=== PATIENT | male | born 1945 | race Caucasian/White ===

== ENCOUNTER → 2016-12-20 | Outpatient (CLI) | payer MEDICARE, OTHER | LOC: MW.CHUR 13:54 | PROVIDERS: ATTEND Urology | DX: R97.20 Elevated prostate specific antigen [PSA] (principal); R31.29 Other microscopic hematuria | CPT/HCPCS: 81001; G0463 ==

== ENCOUNTER 2017-12-23 14:54 | Emergency (ER) | payer MEDICARE, OTHER ==
--- NOTE | 2017-12-23 15:34 | EDM.PDOC ---
ED HPI GENERAL MEDICAL PROBLEM - General Chief Complaint: Head Injury Stated Complaint: NECK PAIN, HEADACHES, BLURRY VISION Time Seen by Provider: 12/23/17 15:21 Source of Information: Reports: Patient History Limitations: Reports: No Limitations - History of Present Illness INITIAL COMMENTS - FREE TEXT/NARRATIVE: HISTORY AND PHYSICAL: History of present illness: Patient is a 72-year-old male who presents to the emergency room today with complaints of head and neck pain. He states one week ago he was walking into the [place] and he slipped and fell on the ice landing on his back. He denies any loss of consciousness at that time. He states that for clinic and evaluated and got 4 mayra placed to the top of the scalp for a laceration. He did not have any scans or lab work done at that time. Today he presented to Dr. Ramos , the urologist, for a appointment and told him of his neck and head discomfort. They recommended that he come to our emergency room for a CT scan. Patient states that for the past couple weeks he has had some visual changes when he is reading small/fine print. He has not seen an cooler worker or had a visual exam and 2+ years. He does wear corrective lenses. He denies any chest pain, shortness of breath, abdominal pain, nausea, vomiting or diarrhea. Currently does not take any blood thinners or aspirin use. He has full range of motion of all extremities and declines any pain or concern with his upper or lower extremities. Review of systems: As per history of present illness and below otherwise all systems reviewed and negative. Past medical history: As per history of present illness and as reviewed below otherwise noncontributory. Surgical history: As per history of present illness and as reviewed below otherwise noncontributory. Social history: No reported history of drug or alcohol abuse. Family history: As per history of present illness and as reviewed below otherwise noncontributory. Physical exam: Gen.: Well-developed and well-nourished 72-year-old male. Alert and oriented. Nontoxic appearing and in no acute distress. HEENT: Atraumatic, normocephalic, pupils reactive, negative for conjunctival pallor or scleral icterus, mucous membranes moist, throat clear, neck supple, nontender, trachea midline. Lungs: Clear to auscultation, breath sounds equal bilaterally, chest nontender. Heart: S1S2, regular, negative for clicks, rubs, or JVD. Abdomen: Soft, nondistended, nontender. Negative for masses or hepatosplenomegaly. Negative for costovertebral tenderness. Pelvis: Stable nontender. Genitourinary: Deferred. Rectal: Deferred. C-Spine/Back: No pinpoint vertebral tenderness with palpation. No crepitus, step -offs or obvious deformities. He is fully ambulatory without any numbness or tingling to his lower extremities. He denies any urinary or fecal incontinence. Extremities: Atraumatic, negative for cords or calf pain. Neurovascular unremarkable. Skin: No bruising or open lesions noted. Does have 4 mayra to the top of the head. These appear free of erythema or signs of infection. Neuro: Awake, alert, oriented. Cranial nerves II through XII unremarkable. Cerebellum unremarkable. Motor and sensory unremarkable throughout. Exam nonfocal. CT head is normal. And the CT of the cervical spine shows some degenerative changes but no acute findings. This was explained to the patient. He voices understanding. We discussed supportive care measures at home. He will follow up with his primary care provider as needed. Diagnostics: CT head and C-spine Therapeutics: [] Impression: #1 Head injury #2 Muscular strain Plan: 1. Your head CT and neck CT are normal. The pain you're experiencing is likely muscular in nature. Flexeril (#8, NRF) has been prescribed for you for muscular spasms. This medication may cause drowsiness so do not take it while driving or needing to be functioning outside of the house. Please continue to take Tylenol and/or ibuprofen as needed for pain management. Gentle heat to the area. 2. Please follow up with her primary care provider ride or as needed. Return to the ED as needed and as discussed. Definitive disposition and diagnosis as appropriate pending reevaluation and review of above. Duration: Day(s): Location: Reports: Head, Neck head Pain Score (Numeric/FACES): 5 - Related Data Allergies Allergy/AdvReac Type Severity Reaction Status Date / Time No Known Allergies Allergy Verified 12/23/17 15:07 Past Medical History Cardiovascular History: Reports: High Cholesterol, Hypertension Genitourinary History: Reports: Other (See Below) Other Genitourinary History: enlarged prostate - Infectious Disease History Infectious Disease History: Reports: Chicken Pox, Shingles Social & Family History - Family History Family Medical History: Noncontributory - Tobacco Use Smoking Status *Q: Never Smoker - Recreational Drug Use Recreational Drug Use: No ED ROS GENERAL - Review of Systems Review Of Systems: ROS reveals no pertinent complaints other than HPI. ED EXAM, HEAD INJURY - Physical Exam Exam: See Below (See dictation) Course - Vital Signs Last Recorded V/S: Last Vital Signs Temp 98.3 F 12/23/17 15:08 Pulse 84 12/23/17 15:08 Resp 18 12/23/17 15:08 BP 131/98 H 12/23/17 15:08 Pulse Ox 93 L 12/23/17 15:08 Departure - Departure Time of Disposition: 16:37 Disposition: Home, Self-Care 01 Clinical Impression: Muscle strain Head injury Qualifiers: Encounter type: subsequent encounter Qualified Code(s): S09.90XD - Unspecified injury of head, subsequent encounter - Discharge Information Referrals: PCP,Unknown [Primary Care Provider] - Forms: ED Department Discharge Additional Instructions: My general discharge The following information is given to patients seen in the emergency department who are being discharged to home. This information is to outline your options for follow-up care. We provide all patients seen in our emergency department with a follow-up referral. The need for follow-up, as well as the timing and circumstances, are variable depending upon the specifics of your emergency department visit. If you don't have a primary care physician on staff, we will provide you with a referral. We always advise you to contact your personal physician following an emergency department visit to inform them of the circumstance of the visit and for follow-up with them and/or the need for any referrals to a consulting specialist. The emergency department will also refer you to a specialist when appropriate. This referral assures that you have the opportunity for follow-up care with a specialist. All of these measure are taken in an effort to provide you with optimal care, which includes your follow-up. Under all circumstances we always encourage you to contact your private physician who remains a resource for coordinating your care. When calling for follow-up care, please make the office aware that this follow-up is from your recent emergency room visit. If for any reason you are refused follow-up, please contact the [facility] Emergency Department at and asked to speak to the emergency department charge nurse. [facility] [address] [place] [address] head [address] and neck CT are normal. The pain you're experiencing is likely muscular in nature. Flexeril has been prescribed for you for muscular spasms. This medication may cause drowsiness so do not take it while driving or needing to be functioning outside of the house. Please continue to take Tylenol and/or ibuprofen as needed for pain management. Gentle heat to the area. 2. Weighs follow-up with the cooler worker for repeat eye exam if he continued to have blurred vision. 3. Please follow up with her primary care provider ride or as needed. Return to the ED as needed and as discussed.
--- NOTE | 2017-12-23 16:08 | CT ---
EXAMINATION: Non contrast CT head. Coronal and sagittal reformats. HISTORY: Pain FINDINGS: No evidence of intra or extra axial hemorrhage, mass, midline shift, hydrocephalus or edema. No hypoattenuation changes in the major vascular territories to suggest acute infarct. No abnormal intracranial calcifications are detected. Mild vascular calcifications are noted. Paranasal sinuses and mastoid air cells are well aerated without substantial findings. Old nasal bon e fractures noted. Orbits and globes are symmetric. Pituitary fossa appears unremarkable. Calvarium is intact. No evidence of skull fracture. IMPRESSION: No acute intracranial findings.
--- NOTE | 2017-12-23 16:11 | CT ---
EXAMINATION: CT cervical spine HISTORY: Pain COMPARISON: None TECHNIQUE: Axial CT images obtained through the cervical spine without contrast. Coronal and sagittal reconstructions obtained. FINDINGS: The cervical spinal alignment is normal. The vertebral body heights appear maintained. Oste ophyte disc complexes are noted from C4 to C7 with at least mild spinal canal and neural foraminal st enosis. No fracture or acute osseous abnormality. Mild marginal osteophytes. Bone mineralization appe ars normal. Prevertebral soft tissues appear normal. The lung apices are clear. IMPRESSION: 1. Moderate degenerative changes without acute findings noted.
== END 2017-12-23 17:05 | disposition home or self-care (01) ==
LOC: MW.ED 14:54
DX: S01.01XD Laceration without foreign body of scalp, subsequent encounter (principal); S09.90XD Unspecified injury of head, subsequent encounter; W00.9XXD Unspecified fall due to ice and snow, subsequent encounter
CPT/HCPCS: 70450; 70450-26; 72125; 72125-26; 99283-25; 99284